=== PATIENT | male | born 1970 | race African-American/Black ===

== ENCOUNTER 2019-10-22 14:41 | Inpatient (IN) ==
[2019-10-22] MEDS ORDERED: DEXTROSE 10% 250 ML BAG IV PRN (16:07)
[2019-10-22] MEDS ORDERED: GLUCAGON 1 MG VIAL IM PRN ×2 (16:07)
[2019-10-22] MEDS ORDERED: DEXTROSE 50% 25 GM/50 ML VIAL IV PRN (16:07)
[2019-10-22] MEDS ORDERED: MORPHINE 4 MG/1 ML VIAL IV PRN (16:12)
[2019-10-22] MEDS ORDERED: NITROGLYCERIN SL 0.4 MG TABLET SL PRN (16:12)
[2019-10-22] MEDS ORDERED: oxyCODONE/ACETAMINOPHEN 5-325 MG TABLET PO PRN (16:13)
[2019-10-22] MEDS ORDERED: SODIUM CHLORIDE 0.9% 1,000 ML IV SCH (16:30)
[2019-10-22 17:08] LABS: ABG Base Excess 5.6 MMOL/L (-2.5-2.5); ABG HCO3 29.3 MMOL/L (20-26); ABG Oxygen Saturation 91.8 % (95-100); ABG PCO2 45.4 MM HG (35-48); ABG PH 7.437 (7.35-7.45); ABG PO2 62.3 MM HG (80-95); Allen Test Positive; Pt O2 Delivery Device Room Air
[2019-10-22 17:28] LABS: Basophils % 0.2 % (0.0-0.8); Eosinophils % 0.3 % (0.00-10.9); Hematocrit 37.6 VOL% (42.0-52.0); Hemoglobin 12.3 GM/DL (14.0-18.0); Immature Granulocytes % 0.2 %; Immature Granulocytes Absolute 0.01 #; Lymphocytes # 1.2 10*3/uL (1.4-4.0); Lymphocytes % 19.9 % (21.2-54.2); Mean Corpuscular HGB Conc 32.7 GM/DL (32-36); Mean Corpuscular Volume 91.5 FL (87-102); Mean Platelet Volume 10.8 FL (9.6-12.0); Monocytes % 14.1 % (1.7-12.7); Neutrophils % 65.3 % (38.7-73.9); Platelet Count 256 T/CUMM (130-400); Red Blood Count 4.11 MC/CUMM (3.8-5.5); Red Cell Distribution Width 15.8 % (9.3-17.3); White Blood Count 6.2 T/CUMM (4-12)
[2019-10-22 17:51] LABS: Albumin 3.4 G/DL (3.4-5.0); Bilirubin,Total 0.8 MG/DL (0.2-1.0); Calcium 8.5 MG/DL (8.5-10.1); Total Protein 7.6 G/DL (6.4-8.3)
[2019-10-22] MEDS: CHLORHEXIDINE 4% SOLN 118 ML BOTTLE TOP SCH (18:30)
[2019-10-22] MEDS: INSULIN LISPRO 100 UNIT/ML SUBCUT SCH ×2 (19:10→21:16)
[2019-10-22] MEDS: CHLORHEXIDINE 0.12% ORAL RINSE 60 ML BOTTLE SWISH/SPIT SCH (21:07)
[2019-10-23] MEDS ORDERED: VANCOMYCIN 1,000 MG VIAL ONE (04:21)
[2019-10-23] MEDS ORDERED: PAPAVERINE 60 MG/2 ML VIAL ONE (04:21)
[2019-10-23] MEDS ORDERED: VANCOMYCIN 500 MG VIAL ONE (04:21)
[2019-10-23] MEDS ORDERED: CEFUROXIME INJ 1,500 MG in SYRINGE 1 EACH IV ONE (06:00)
[2019-10-23] MEDS ORDERED: DIAZEPAM 5 MG TABLET PO ONE (06:30)
[2019-10-23] MEDS ORDERED: FAMOTIDINE 20 MG TABLET PO ONE (06:30)
[2019-10-23 07:35] LABS: ABG Base Excess 6.1 MMOL/L (-2.5-2.5); ABG Oxygen Saturation 99.7 % (95-100); ABG PCO2 42.8 MM HG (35-48); ABG PH 7.462 (7.35-7.45); ABG TCO2 27.4 MMOL/L (23-27); Glucose Heart Surgery 128 MG/DL (74-106); Hematocrit Heart Surgery 33.2 PERCENT (42-52); Hemoglobin Heart Surgery 10.8 G/DL (14.0-18.0); Ionized Calcium Arterial 1.07 MMOL/L (1.21-1.46); PCO2 Patient Temp Arterial 42.8 MMHG; PH Patient Temp Arterial 7.462; Patient Temperature 37 CELCIUS; Sodium Heart/CVR 139 MMOL/L (135-145)
[2019-10-23 08:27] LABS: Apearance,Urine CLEAR (Clear); Bilirubin,Urine Negative (Negative); Blood, Urine Negative (Negative); Glucose,Urine (UA) Negative (Negative); Ketones,Urine 5 mg/dL (Negative); Mucus,Urine Many /LPF (Occasional); Nitrite,Urine Negative (Negative); Protein,Urine 30 MG/DL; RBC,Urine 8 /HPF (0-4); Squamous Epithelial Cell,Urine Occasional /HPF (0-10); Urine Color Amber (Yellow); Urine Specific Gravity 1.033 (1.001-1.035); WBC,Urine 1 /HPF (0-6)
[2019-10-23 09:21] LABS: Hematocrit Heart Surgery 24.5 PERCENT (42-52); Hemoglobin Heart Surgery 7.9 G/DL (14.0-18.0); PCO2 Patient Temp Venous 36.4 MM HG; PH Patient Temp Venous 7.506; PO2 Patient Temp Venous 35.8 MM HG; Potassium Heart/CVR 3.6 MMOL/L (3.5-5.1); VBG Base Excess 5.6 MEQ/L (0-4); VBG HCO3 29.3 MEQ/L (24-28); VBG Oxygen Saturation 78.1 %; VBG PCO2 40.1 MMHG (41-51); VBG PH 7.476; VBG PO2 41.1 MMHG (17-40)
[2019-10-23] MEDS ORDERED: PHENYLEPHRINE DRIP 20 MG/250 ML PREMIX IV ONE (09:22)
[2019-10-23] MEDS ORDERED: HEPARIN/NACL 0.9% 2 UNITS/ML 500 ML IV ONE (09:22)
[2019-10-23] MEDS ORDERED: POTASSIUM CHLORIDE RIDER 100 ML IV ONE (09:30)
[2019-10-23] MEDS ORDERED: LIDOCAINE 100 MG/5 ML SYRINGE ONE (09:30)
[2019-10-23] MEDS ORDERED: EPINEPHrine 1 MG/10 ML SYRINGE ONE (09:30)
[2019-10-23] MEDS ORDERED: LORazepam 2 MG/1 ML VIAL ONE (09:30)
[2019-10-23] MEDS ORDERED: SODIUM BICARBONATE 50 MEQ/50 ML VIAL IV ONE ×2 (09:30→10:36)
[2019-10-23] MEDS ORDERED: CALCIUM CHLORIDE 1,000 MG/10 ML SYRINGE IV ONE (09:30)
[2019-10-23] MEDS ORDERED: PHENYLEPHRINE DRIP 40 MG/250 ML PREMIX IV ONE (09:30)
[2019-10-23] MEDS ORDERED: ALBUMIN 5% 12.5 GM/250 ML VIAL IV ONE ×3 (09:30→12:22)
[2019-10-23] MEDS ORDERED: ATROPINE 1 MG/10 ML SYRINGE ONE (09:30)
[2019-10-23 09:53] LABS: Hematocrit Heart Surgery 26.7 PERCENT (42-52); Hemoglobin Heart Surgery 8.6 G/DL (14.0-18.0); PH Patient Temp Venous 7.498; PO2 Patient Temp Venous 34.5 MM HG; Potassium Heart/CVR 4.1 MMOL/L (3.5-5.1); VBG Base Excess 5.3 MEQ/L (0-4); VBG HCO3 28.9 MEQ/L (24-28); VBG Oxygen Saturation 72.3 %; VBG PCO2 38.9 MMHG (41-51); VBG PH 7.483
[2019-10-23] MEDS ORDERED: THROMBIN TOPICAL (RECOMBINANT) 5,000 UNIT VIAL TOP ONE (10:11)
[2019-10-23 10:29] LABS: ABG Base Excess 4.9 MMOL/L (-2.5-2.5); ABG HCO3 28.8 MMOL/L (20-26); ABG PH 7.501 (7.35-7.45); ABG TCO2 25.8 MMOL/L (23-27); Glucose Heart Surgery 191 MG/DL (74-106); Hematocrit Heart Surgery 28.5 PERCENT (42-52); Hemoglobin Heart Surgery 9.2 G/DL (14.0-18.0); Ionized Calcium Arterial 1.27 MMOL/L (1.21-1.46); PH Patient Temp Arterial 7.501; Patient Temperature 37 CELCIUS; Potassium Heart/CVR 3.6 MMOL/L (3.5-5.1); Sodium Heart/CVR 137 MMOL/L (135-145)
[2019-10-23] MEDS ORDERED: MANNITOL 100 GM/500 ML BAG IV ONE (10:35)
[2019-10-23] MEDS ORDERED: LIDOCAINE 2% 5 ML VIAL ONE ×2 (10:35→12:22)
[2019-10-23] MEDS ORDERED: HEPARIN 10,000 UNIT/10 ML VIAL ONE ×2 (10:36→12:22)
[2019-10-23] MEDS ORDERED: methylPREDNISolone SOD SUC 1,000 MG/8 ML VIAL ONE (10:36)
[2019-10-23] MEDS ORDERED: MAGNESIUM SULFATE 5 GM/10 ML VIAL IV ONE (10:36)
[2019-10-23] MEDS ORDERED: ALBUMIN 25% 25 GM/100 ML VIAL IV ONE (10:36)
[2019-10-23] MEDS ORDERED: DEXTROSE 5% KCL 20 MEQ 20 MEQ/1,000 ML BAG IV ONE (10:36)
[2019-10-23] MEDS ORDERED: PROTAMINE SULFATE 50 MG/5 ML VIAL IV ONE ×3 (10:36→11:54)
[2019-10-23] MEDS ORDERED: FUROSEMIDE 20 MG/2 ML VIAL ONE (10:36)
[2019-10-23] MEDS ORDERED: PROTAMINE SULFATE 250 MG/25 ML VIAL IV ONE (10:36)
[2019-10-23] MEDS ORDERED: POTASSIUM CHLORIDE 20 MEQ/10 ML VIAL ONE (10:37)
[2019-10-23] MEDS ORDERED: VECURONIUM 10 MG VIAL IV PRN ×2 (11:27)
[2019-10-23] MEDS ORDERED: INSULIN REGULAR 100 UNIT/ML IV PRN (11:27)
[2019-10-23] MEDS ORDERED: MIDAZOLAM 2 MG/2 ML VIAL IV PRN (11:27)
[2019-10-23] MEDS ORDERED: MIDAZOLAM 10 MG/2 ML VIAL IV PRN (11:27)
[2019-10-23] MEDS ORDERED: ALBUMIN 5% 12.5 GM in PREMIX 1 EACH IV PRN (11:27)
[2019-10-23] MEDS ORDERED: ACETAMINOPHEN 650 MG SUPP RECTAL PRN (11:27)
[2019-10-23] MEDS ORDERED: INSULIN REGULAR 100 UNIT/ML IV ONE (11:27)
[2019-10-23] MEDS ORDERED: PHENYLEPHRINE DRIP 40 MG/250 ML PREMIX IV PRN (11:27)
[2019-10-23] MEDS ORDERED: NITROPRUSSIDE 100 MG in DEXTROSE 5% 250 ML IV PRN (11:27)
[2019-10-23] MEDS ORDERED: LACTATED RINGERS 250 ML IV PRN (11:27)
[2019-10-23] MEDS ORDERED: CHLORHEXIDINE 4% SOLN 118 ML BOTTLE TOP PRN (11:27)
[2019-10-23] MEDS ORDERED: MORPHINE 4 MG/1 ML VIAL IV PRN (11:27)
[2019-10-23] MEDS ORDERED: CALCIUM CHLORIDE 1,000 MG/10 ML SYRINGE IV PRN (11:27)
[2019-10-23] MEDS ORDERED: ONDANSETRON 4 MG/2 ML VIAL IV PRN (11:27)
[2019-10-23] MEDS ORDERED: DEXTROSE 10% 250 ML BAG IV PRN ×2 (11:27)
[2019-10-23] MEDS ORDERED: MAGNESIUM SULF RIDER 4 GM in PREMIX 1 EACH IV PRN (11:27)
[2019-10-23] MEDS ORDERED: MAGNESIUM SULF RIDER 2 GM in PREMIX 1 EACH IV PRN (11:27)
[2019-10-23] MEDS ORDERED: SODIUM CHLORIDE 0.45% 1,000 ML IV SCH ×2 (11:30)
[2019-10-23] MEDS ORDERED: INSULIN REGULAR DRIP 100 ML IV SCH (11:30)
[2019-10-23] MEDS ORDERED: LACTATED RINGERS 1,000 ML IV ONE ×2 (11:35→12:24)
[2019-10-23 11:56] LABS: ABG Base Excess 4.2 MMOL/L (-2.5-2.5); ABG HCO3 28.2 MMOL/L (20-26); ABG Oxygen Saturation 98.5 % (95-100); ABG PCO2 39.5 MM HG (35-48); ABG PH 7.462 (7.35-7.45); ABG TCO2 25.5 MMOL/L (23-27); Glucose Heart Surgery 172 MG/DL (74-106); Potassium Heart/CVR 3.7 MMOL/L (3.5-5.1)
[2019-10-23 12:02] LABS: Basophils % 0.2 % (0.0-0.8); Eosinophils # 0.1 10*3/uL (0.0-0.87); Eosinophils % 0.6 % (0.00-10.9); Hematocrit 30.4 VOL% (42.0-52.0); Hemoglobin 9.9 GM/DL (14.0-18.0); Immature Granulocytes % 0.6 %; Immature Granulocytes Absolute 0.06 #; Lymphocytes # 0.9 10*3/uL (1.4-4.0); Lymphocytes % 9.6 % (21.2-54.2); Mean Corpuscular HGB Conc 32.6 GM/DL (32-36); Mean Corpuscular Volume 91.8 FL (87-102); Mean Platelet Volume 11.3 FL (9.6-12.0); Monocytes % 8.5 % (1.7-12.7); Neutrophils % 80.5 % (38.7-73.9); Platelet Count 198 T/CUMM (130-400); Red Blood Count 3.31 MC/CUMM (3.8-5.5); Red Cell Distribution Width 15.9 % (9.3-17.3); White Blood Count 9.5 T/CUMM (4-12)
[2019-10-23 12:12] LABS: INR 1.2; PT Patient Result 12.2 SECS (9.8-11.9); Partial Thromboplastin Time 30.4 SECS (23.9-33.8)
[2019-10-23] MEDS ORDERED: SEVOFLURANE 1 UNIT/15 MINUTE INH ONE (12:22)
[2019-10-23] MEDS ORDERED: CALCIUM CHLORIDE 1,000 MG/10 ML VIAL IV ONE (12:22)
[2019-10-23] MEDS ORDERED: ESMOLOL 100 MG/10 ML VIAL IV ONE (12:23)
[2019-10-23] MEDS ORDERED: MIDAZOLAM 10 MG/2 ML VIAL ONE (12:23)
[2019-10-23] MEDS ORDERED: ETOMIDATE 40 MG/20 ML VIAL IV ONE (12:23)
[2019-10-23] MEDS ORDERED: METOPROLOL TARTRATE 5 MG/5 ML VIAL IV ONE (12:23)
[2019-10-23] MEDS ORDERED: SUFentanil 250 MCG/5 ML AMP ONE (12:23)
[2019-10-23] MEDS ORDERED: VECURONIUM 10 MG VIAL IV ONE (12:23)
[2019-10-23] MEDS ORDERED: SODIUM CHLORIDE 0.9% 200 ML IV ONE (12:24)
[2019-10-23] MEDS ORDERED: SODIUM CHLORIDE 0.9% 250 ML IV ONE (12:24)
[2019-10-23] MEDS ORDERED: AMINOCAPROIC ACID 5,000 MG/20 ML VIAL ONE (12:24)
[2019-10-23] MEDS ORDERED: SODIUM CHLORIDE 0.9% 1,000 ML IV ONE (12:24)
[2019-10-23 12:31] LABS: Albumin 3.3 G/DL (3.4-5.0); Bilirubin,Total 1.6 MG/DL (0.2-1.0); Calcium 8.8 MG/DL (8.5-10.1); Osmolality,Calculated 283.3 MOS/KG (273-304)
[2019-10-23 12:40] LABS: CKMB % 0.6 %
[2019-10-23] MEDS: POTASSIUM CHLORIDE RIDER 20 MEQ in PREMIX 1 EACH IV PRN ×4 (12:40→20:59)
[2019-10-23 12:43] LABS: Troponin I 1.1 NG/ML (0.00-0.045)
[2019-10-23] MEDS: LACTATED RINGERS 1,000 ML IV PRN ×3 (13:00→15:52)
[2019-10-23] MEDS: POTASSIUM CHLORIDE RIDER 10 MEQ in PREMIX 1 EACH IV PRN ×2 (13:07→17:30)
[2019-10-23 13:10] LABS: ABG HCO3 27.1 MMOL/L (20-26); ABG Oxygen Saturation 97.5 % (95-100); ABG PCO2 39.3 MM HG (35-48); ABG PH 7.447 (7.35-7.45); ABG PO2 88.6 MM HG (80-95); ABG TCO2 24.9 MMOL/L (23-27); Glucose Heart Surgery 165 MG/DL (74-106); Hematocrit Heart Surgery 28.3 PERCENT (42-52); Hemoglobin Heart Surgery 9.1 G/DL (14.0-18.0)
[2019-10-23] MEDS ORDERED: NITROPRUSSIDE 50 MG/2 ML VIAL ONE (13:36)
[2019-10-23] MEDS: MORPHINE 10 MG/1 ML VIAL IV PRN ×2 (14:27→20:00)
[2019-10-23 16:16] LABS: ABG Base Excess 1.2 MMOL/L (-2.5-2.5); ABG HCO3 25.5 MMOL/L (20-26); ABG Oxygen Saturation 96.7 % (95-100); ABG PCO2 51.1 MM HG (35-48); ABG PH 7.342 (7.35-7.45); ABG TCO2 25.1 MMOL/L (23-27); Glucose Heart Surgery 139 MG/DL (74-106); Hematocrit Heart Surgery 33.5 PERCENT (42-52); Hemoglobin Heart Surgery 10.9 G/DL (14.0-18.0); Potassium Heart/CVR 3.7 MMOL/L (3.5-5.1)
[2019-10-23 17:52] LABS: ABG Base Excess 1.5 MMOL/L (-2.5-2.5); ABG HCO3 25.7 MMOL/L (20-26); ABG PCO2 51.6 MM HG (35-48); ABG PH 7.343 (7.35-7.45); ABG PO2 86.7 MM HG (80-95); ABG TCO2 25.4 MMOL/L (23-27); Glucose Heart Surgery 150 MG/DL (74-106); Hemoglobin Heart Surgery 10.7 G/DL (14.0-18.0); Potassium Heart/CVR 4.3 MMOL/L (3.5-5.1)
[2019-10-23] MEDS ORDERED: FUROSEMIDE 40 MG/4 ML VIAL IV ONE (18:00)
[2019-10-23] MEDS: CEFUROXIME INJ 1,500 MG in SYRINGE 1 EACH IV SCH (19:50)
[2019-10-23 20:10] LABS: ABG Base Excess 2.4 MMOL/L (-2.5-2.5); ABG HCO3 26.5 MMOL/L (20-26); ABG Oxygen Saturation 96.1 % (95-100); ABG PCO2 51.9 MM HG (35-48); ABG PH 7.353 (7.35-7.45); ABG PO2 85.2 MM HG (80-95); ABG TCO2 26.1 MMOL/L (23-27); Glucose Heart Surgery 136 MG/DL (74-106); Hematocrit Heart Surgery 33.7 PERCENT (42-52); Hemoglobin Heart Surgery 10.9 G/DL (14.0-18.0); Potassium Heart/CVR 4.3 MMOL/L (3.5-5.1)
[2019-10-23] MEDS: CHLORHEXIDINE 0.12% ORAL RINSE 60 ML BOTTLE SWISH/SPIT SCH (20:12)
[2019-10-23 21:05] LABS: CKMB % 0.9 %
[2019-10-23 21:07] LABS: Troponin I 3.39 NG/ML (0.00-0.045)
[2019-10-23] MEDS ORDERED: HYDROmorphone 2 MG/1 ML VIAL IV PRN (21:47)
[2019-10-23] MEDS: KETOROLAC 30 MG/1 ML VIAL IV SCH (21:58)
[2019-10-24] MEDS ORDERED: FUROSEMIDE 40 MG/4 ML VIAL IV ONE (01:12)
[2019-10-24 04:14] LABS: ABG Base Excess 1.6 MMOL/L (-2.5-2.5); ABG HCO3 26.1 MMOL/L (20-26); ABG Oxygen Saturation 94.1 % (95-100); ABG PH 7.422 (7.35-7.45); ABG PO2 72.2 MM HG (80-95); ABG TCO2 27.4 MMOL/L (23-27); Glucose Heart Surgery 108 MG/DL (74-106); Hemoglobin Heart Surgery 11.4 G/DL (14.0-18.0); Potassium Heart/CVR 4.4 MMOL/L (3.5-5.1)
[2019-10-24] MEDS: KETOROLAC 30 MG/1 ML VIAL IV SCH ×4 (04:29→22:03)
[2019-10-24] MEDS: POTASSIUM CHLORIDE RIDER 20 MEQ in PREMIX 1 EACH IV PRN (04:31)
[2019-10-24 04:33] LABS: Basophils % 0.1 % (0.0-0.8); Hematocrit 33.5 VOL% (42.0-52.0); Hemoglobin 10.7 GM/DL (14.0-18.0); Immature Granulocytes % 0.7 %; Immature Granulocytes Absolute 0.11 #; Lymphocytes # 0.4 10*3/uL (1.4-4.0); Lymphocytes % 2.6 % (21.2-54.2); Mean Corpuscular HGB Conc 31.9 GM/DL (32-36); Mean Corpuscular Volume 92.5 FL (87-102); Mean Platelet Volume 11.4 FL (9.6-12.0); Monocytes % 10.5 % (1.7-12.7); Neutrophils % 86.1 % (38.7-73.9); Platelet Count 220 T/CUMM (130-400); Red Blood Count 3.62 MC/CUMM (3.8-5.5); Red Cell Distribution Width 16.5 % (9.3-17.3); White Blood Count 16.8 T/CUMM (4-12)
[2019-10-24 04:54] LABS: Albumin 3.4 G/DL (3.4-5.0); Bilirubin,Direct 0.13 MG/DL (0.0-0.20); Bilirubin,Total 0.9 MG/DL (0.2-1.0); Calcium 8.6 MG/DL (8.5-10.1); Osmolality,Calculated 283.1 MOS/KG (273-304); Total Protein 7.2 G/DL (6.4-8.3)
[2019-10-24 05:09] LABS: CKMB % 0.9 %
[2019-10-24 05:19] LABS: Troponin I 2.7 NG/ML (0.00-0.045)
[2019-10-24 06:36] LABS: Anisocytosis 1+; Lymphocytes 2 % (20-55); Microcytosis 1+; Platelet Estimate Normal; Polychromasia Slight; Segmented Neutrophils 86 % (50-85); Total Cells Counted 100
[2019-10-24 06:37] LABS: Target Cells Slight
[2019-10-24] MEDS: CEFUROXIME INJ 1,500 MG in SYRINGE 1 EACH IV SCH ×2 (06:56→20:42)
[2019-10-24] MEDS: INSULIN LISPRO 100 UNIT/ML SUBCUT SCH (08:10)
[2019-10-24] MEDS: INSULIN REGULAR 100 UNIT/ML SUBCUT SCH ×4 (08:10→22:06)
[2019-10-24] MEDS: CHLORHEXIDINE 4% SOLN 118 ML BOTTLE TOP SCH (08:10)
[2019-10-24] MEDS: CHLORHEXIDINE 0.12% ORAL RINSE 60 ML BOTTLE SWISH/SPIT SCH ×3 (08:11→22:13)
[2019-10-24] MEDS ORDERED: SODIUM CHLOR 0.45% KCL 20 MEQ 20 MEQ/1,000 ML BAG IV SCH ×2 (08:30→12:40)
[2019-10-24 08:31] LABS: Protein/Creatinine Ratio,Urine 0.1 RATIO
[2019-10-24 12:38] LABS: Troponin I 1.74 NG/ML (0.00-0.045)
[2019-10-24] MEDS ORDERED: ONDANSETRON 4 MG/2 ML VIAL IV PRN (12:40)
[2019-10-24] MEDS ORDERED: DEXTROSE 50% 25 GM/50 ML VIAL IV PRN (12:40)
[2019-10-24] MEDS ORDERED: ZALEPLON 5 MG CAPSULE PO PRN (12:40)
[2019-10-24] MEDS ORDERED: MAGNESIUM HYDROXIDE SUSP 30 ML UDCUP PO PRN (12:40)
[2019-10-24] MEDS ORDERED: MAGNESIUM SULF RIDER 2 GM in PREMIX 1 EACH IV PRN (12:40)
[2019-10-24] MEDS ORDERED: ACETAMINOPHEN 325 MG TABLET PO PRN (12:40)
[2019-10-24] MEDS ORDERED: oxyCODONE/ACETAMINOPHEN 5-325 MG TABLET PO PRN ×2 (12:40)
[2019-10-24] MEDS ORDERED: GLUCAGON 1 MG VIAL IM PRN ×2 (12:40)
[2019-10-24] MEDS ORDERED: MAGNESIUM SULF RIDER 4 GM in PREMIX 1 EACH IV PRN (12:40)
[2019-10-24] MEDS ORDERED: DEXTROSE 10% 250 ML BAG IV PRN (12:40)
[2019-10-24] MEDS ORDERED: ALUMINUM/MAGNES/SIMETH MAX STR 30 ML UDCUP PO PRN (12:40)
[2019-10-24 12:53] LABS: CKMB % 0.8 %
[2019-10-24] MEDS: ASPIRIN CHEW 81 MG TABLET PO SCH (13:00)
[2019-10-24] MEDS ORDERED: INSULIN REGULAR 100 UNIT/ML ONE (17:34)
[2019-10-24] MEDS ORDERED: INSULIN REGULAR 100 UNIT/ML SUBCUT SCH ×3 (17:43→20:00)
[2019-10-24] MEDS: ATORVASTATIN 80 MG TABLET PO SCH (22:09)
[2019-10-25] MEDS: INSULIN REGULAR 100 UNIT/ML SUBCUT SCH ×6 (00:35→20:40)
[2019-10-25] MEDS: KETOROLAC 30 MG/1 ML VIAL IV SCH ×4 (05:01→22:12)
[2019-10-25] MEDS ORDERED: FUROSEMIDE 40 MG/4 ML VIAL IV ONE (06:00)
[2019-10-25 07:04] LABS: Basophils % 0.1 % (0.0-0.8); Hematocrit 30.2 VOL% (42.0-52.0); Hemoglobin 9.7 GM/DL (14.0-18.0); Immature Granulocytes % 0.6 %; Immature Granulocytes Absolute 0.08 #; Lymphocytes # 0.9 10*3/uL (1.4-4.0); Lymphocytes % 6.7 % (21.2-54.2); Mean Corpuscular HGB Conc 32.1 GM/DL (32-36); Mean Corpuscular Volume 91.8 FL (87-102); Mean Platelet Volume 11.5 FL (9.6-12.0); Monocytes % 12.4 % (1.7-12.7); Neutrophils % 80.2 % (38.7-73.9); Platelet Count 196 T/CUMM (130-400); Red Blood Count 3.29 MC/CUMM (3.8-5.5); Red Cell Distribution Width 16.3 % (9.3-17.3); White Blood Count 13.4 T/CUMM (4-12)
[2019-10-25 07:19] LABS: Albumin 3.2 G/DL (3.4-5.0); Bilirubin,Direct 0.13 MG/DL (0.0-0.20); Bilirubin,Total 0.8 MG/DL (0.2-1.0); Calcium 8.3 MG/DL (8.5-10.1); Osmolality,Calculated 279.7 MOS/KG (273-304)
[2019-10-25 07:22] LABS: Alanine Aminotransferase 37 U/L (16-61); Albumin 3.1 G/DL (3.4-5.0); Alkaline Phosphatase 59 U/L (45-117); Aspartate Amino Transferase 31 U/L (0-37); Bilirubin,Indirect 1.1 MG/DL (0.0-1.0); Total Protein 6.9 G/DL (6.4-8.3)
[2019-10-25 07:23] LABS: Troponin I 0.548 NG/ML (0.00-0.045)
[2019-10-25] MEDS: ASPIRIN CHEW 81 MG TABLET PO SCH (08:35)
[2019-10-25] MEDS: FERROUS SULFATE 325 MG TABLET PO SCH (08:35)
[2019-10-25] MEDS: PANTOPRAZOLE 40 MG TABLET PO SCH (08:35)
[2019-10-25] MEDS: DOCUSATE SODIUM 100 MG CAPSULE PO SCH (08:35)
[2019-10-25] MEDS: CHLORHEXIDINE 0.12% ORAL RINSE 60 ML BOTTLE SWISH/SPIT SCH ×2 (08:35→22:11)
[2019-10-25] MEDS: CYANOCOBALAMIN 500 MCG TABLET PO SCH (08:35)
[2019-10-25] MEDS: ATORVASTATIN 80 MG TABLET PO SCH (22:09)
[2019-10-26] MEDS: KETOROLAC 30 MG/1 ML VIAL IV SCH ×4 (04:52→23:00)
[2019-10-26 06:35] LABS: Basophils % 0.2 % (0.0-0.8); Eosinophils # 0.1 10*3/uL (0.0-0.87); Eosinophils % 0.6 % (0.00-10.9); Hematocrit 29.1 VOL% (42.0-52.0); Immature Granulocytes % 0.6 %; Immature Granulocytes Absolute 0.06 #; Lymphocytes # 1.4 10*3/uL (1.4-4.0); Lymphocytes % 14.4 % (21.2-54.2); Mean Corpuscular HGB Conc 30.9 GM/DL (32-36); Mean Corpuscular Volume 95.4 FL (87-102); Monocytes % 15.1 % (1.7-12.7); Neutrophils % 69.1 % (38.7-73.9); Platelet Count 208 T/CUMM (130-400); Red Blood Count 3.05 MC/CUMM (3.8-5.5); Red Cell Distribution Width 16.3 % (9.3-17.3); White Blood Count 9.8 T/CUMM (4-12)
[2019-10-26 06:54] LABS: Alanine Aminotransferase 38 U/L (16-61); Albumin 2.8 G/DL (3.4-5.0); Alkaline Phosphatase 63 U/L (45-117); Aspartate Amino Transferase 27 U/L (0-37); Bilirubin,Direct < 0.100 MG/DL (0.0-0.20); Blood Urea Nitrogen 18 MG/DL (7-18); Calcium 7.9 MG/DL (8.5-10.1); Estimated Glom Filtration Rate 177 ML/MIN; Glucose 114 MG/DL (74-106); Osmolality,Calculated 279.5 MOS/KG (273-304); Total Protein 6.6 G/DL (6.4-8.3)
[2019-10-26 07:01] LABS: Alanine Aminotransferase 40 U/L (16-61); Albumin 2.8 G/DL (3.4-5.0); Alkaline Phosphatase 64 U/L (45-117); Aspartate Amino Transferase 26 U/L (0-37); Bilirubin,Indirect 0.5 MG/DL (0.0-1.0); Total Protein 6.5 G/DL (6.4-8.3)
[2019-10-26 07:03] LABS: Troponin I 0.286 NG/ML (0.00-0.045)
[2019-10-26] MEDS ORDERED: METOPROLOL TARTRATE 50 MG TABLET PO SCH ×2 (09:00→21:00)
[2019-10-26] MEDS: ASPIRIN CHEW 81 MG TABLET PO SCH (09:09)
[2019-10-26] MEDS: CYANOCOBALAMIN 500 MCG TABLET PO SCH (09:10)
[2019-10-26] MEDS: FERROUS SULFATE 325 MG TABLET PO SCH (09:10)
[2019-10-26] MEDS: CHLORHEXIDINE 0.12% ORAL RINSE 60 ML BOTTLE SWISH/SPIT SCH ×2 (09:10→23:07)
[2019-10-26] MEDS: DOCUSATE SODIUM 100 MG CAPSULE PO SCH (09:10)
[2019-10-26] MEDS: PANTOPRAZOLE 40 MG TABLET PO SCH (09:10)
[2019-10-26] MEDS: INSULIN REGULAR 100 UNIT/ML SUBCUT SCH ×4 (09:15→23:04)
[2019-10-26] MEDS: POTASSIUM CHLORIDE 20 MEQ TABLET PO PRN (09:19)
[2019-10-26] MEDS: ATORVASTATIN 80 MG TABLET PO SCH (23:03)
[2019-10-27] MEDS: KETOROLAC 30 MG/1 ML VIAL IV SCH (04:41)
[2019-10-27 07:27] LABS: Calcium 8.1 MG/DL (8.5-10.1); Osmolality,Calculated 280.4 MOS/KG (273-304)
[2019-10-27] MEDS ORDERED: METOPROLOL TARTRATE 50 MG TABLET PO SCH (09:00)
[2019-10-27] MEDS ORDERED: ASPIRIN EC 325 MG TABLET PO SCH (09:00)
[2019-10-27] MEDS ORDERED: LOSARTAN 25 MG TABLET PO SCH (09:00)
[2019-10-27] MEDS ORDERED: hydroCHLOROthiazide 25 MG TABLET PO SCH (09:00)
[2019-10-27] MEDS: INSULIN REGULAR 100 UNIT/ML SUBCUT SCH (09:02)
[2019-10-27] MEDS: POTASSIUM CHLORIDE 20 MEQ TABLET PO PRN (09:02)
[2019-10-27] MEDS: PANTOPRAZOLE 40 MG TABLET PO SCH (09:03)
[2019-10-27] MEDS: DOCUSATE SODIUM 100 MG CAPSULE PO SCH (09:03)
[2019-10-27] MEDS: CYANOCOBALAMIN 500 MCG TABLET PO SCH (09:04)
[2019-10-27] MEDS: CHLORHEXIDINE 0.12% ORAL RINSE 60 ML BOTTLE SWISH/SPIT SCH (09:04)
[2019-10-27] MEDS: FERROUS SULFATE 325 MG TABLET PO SCH (09:04)
[2019-10-27 12:09] VITALS: BP 122/66
== END 2019-10-27 13:37 | disposition home health service (06) | DRG 236 ==
LOC: N.TELEN 16:11 → N.CVR 10-23 11:18 → N.TELES 10-24 11:38